=== PATIENT | male | born 1955 | race Caucasian/White ===

== ENCOUNTER 2018-02-05 10:23 | Emergency (ER) | payer MEDICARE ==
[~2018-02-05] VITALS: Ht 180.3 cm; Wt 68.0 kg
[2018-02-05] MEDS ORDERED: SODIUM CHLORIDE 0.9% 1000ML 1,000 ML IV SCH (11:00)
[2018-02-05 11:30] LABS: BASOPHILS % 0.2 % (0.0-1.0); EOSINOPHILS % 0.1 % (0.0-6.0); HEMATOCRIT 42.8 % (38.2-49.6); LYMPHOCYTES # (AUTO) 1.8 (1.0-3.2); LYMPHOCYTES % 10.8 % (18.0-39.1); MEAN CORPUSCULAR HEMOGLOBIN 31.5 pg (28-32); MEAN CORPUSCULAR VOLUME 89.9 fL (81-99); MONOCYTES # (AUTO) 0.2 (0.2-0.8); MONOCYTES % 1.4 % (4.4-11.3); NEUTROPHILS # (AUTO) 14.4 (2.1-6.9); NEUTROPHILS % 86.5 % (38.7-80.0); PLATELET COUNT 289 x10e3/uL (140-360); RED BLOOD COUNT 4.76 x10e6/uL (4.3-5.7); RED CELL DISTRIBUTION WIDTH 13.2 % (11.7-14.4)
[2018-02-05 11:50] LABS: ALANINE AMINOTRANSFERASE 26 IU/L (0-55); ALBUMIN 4.1 g/dL (3.5-5.0); ALKALINE PHOSPHATASE 70 IU/L (40-150); ANION GAP 18.3 mmol/L (8-16); BLOOD UREA NITROGEN 15 mg/dL (7-26); BUN/CREATININE RATIO 18 (6-25); CALCIUM 9.7 mg/dL (8.4-10.2); CARBON DIOXIDE 22 mmol/L (22-29); CHLORIDE 101 mmol/L (98-107); CREATINE KINASE 201 IU/L (30-200); CREATININE, SERUM 0.83 mg/dL (0.72-1.25); EST GLOMERULAR FILTRATION RATE > 60 ML/MIN (60-); GLUCOSE 123 mg/dL (74-118); POTASSIUM 4.3 mmol/L (3.5-5.1); SODIUM 137 mmol/L (136-145)
--- NOTE | 2018-02-05 13:09 | Diagnostic Imaging Report ---
Exam: Cervical spine CT without IV contrast History: Tingling and numbness, unable to keep study on feet. Comparison studies: None Technique: Axial images were obtained through the cervical region. Coronal and sagittal images reconstructed from the axial data. Intravenous contrast: None Findings: Atlantoaxial articulation: Intact Alignment: Straightened cervical curvature. Minimal anterolisthesis of C4 on C5 and retrolisthesis of C5 on C6. Cervicomedullary junction: No abnormalities. Patent foramen magnum. Soft tissues: No gross acute abnormalities. Vertebrae: No fractures, neoplasm or infection. Degenerative changes: C2-C3: Moderate left facet arthrosis. Patent canal and right foramen. C3-C4: Small asymmetric right disc osteophyte complex, mildly thickened ligamentum flavum, uncovertebral arthrosis and severe right and mild left facet arthrosis with severe right and mild left foraminal stenosis and mild canal stenosis. C4-C5: Mildly degenerated disc. Minimal anterolisthesis of C4 on C5 with small disc osteophyte complex which indents the thecal sac but does not result in significant canal stenosis. Uncovertebral arthrosis and moderate right and mild left facet arthrosis with moderate right foraminal stenosis. Patent left foramen. C5-C6: Moderately degenerated disc with loss of disc height. Minimal retrolisthesis of C5 on C6 with associated disc osteophyte complex, uncovertebral arthrosis and moderate right and mild left facet arthrosis with mild canal stenosis and moderate bilateral foraminal stenosis. Small anterior disc osteophyte complex indents the prevertebral soft tissues. C6-C7: Mildly degenerated disc. Small disc osteophyte complex indents the thecal sac without significant canal stenosis. Patent foramina. C7-T1: Patent canal and foramina. Incidental findings: Emphysema with mild scarring at the lung apices bilaterally. 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 Mild calcified atherosclerosis in the carotid bulbs. IMPRESSION: 1. No cervical spine fracture or acute subluxation. 2. Multilevel degenerative changes with moderately degenerated C5-C6 disc, advanced multilevel facet arthrosis and multilevel foraminal stenosis (severe right at C3-C4, moderate on the right at C4-C5 and bilaterally at C5-C6). 3. No critical canal stenosis identified by CT. Cervical spine MRI may better evaluate the spinal canal and spinal cord and could be performed as clinically warranted. Signed by: Dr. Rainer Corbin M.D. on 02/05/2018 1:06 PM
[2018-02-05 13:16] LABS: INR 0.92; PROTHROMBIN TIME 13.2 seconds (11.9-14.5)
[2018-02-05 13:17] LABS: PARTIAL THROMBOPLASTIN TIME 29.9 seconds (23.8-35.5)
[2018-02-05 14:37] VITALS: BP 140/99
== END 2018-02-05 14:42 | disposition home or self-care (01) ==
LOC: ER 10:23
DX: M54.2 Cervicalgia (principal); M54.12 Radiculopathy, cervical region
CPT/HCPCS: 36415; 72125; 80053; 82550; 82553; 84484; 85025; 85610; 85730; 99284; J7030

== ENCOUNTER 2021-09-29 07:41 | Emergency (ER) | payer MEDICARE ==
[~2021-09-29] VITALS: Ht 177.8 cm; Wt 70.3 kg
[2021-09-29] MEDS ORDERED: LYRICA75 MG PO (08:02)
[2021-09-29] MEDS ORDERED: ACETAMINOPHEN-1 EAC4 (08:02)
[2021-09-29] MEDS ORDERED: SODIUM CHLORIDE 0.9% 100 ML ONE (08:45)
[2021-09-29] MEDS ORDERED: SODIUM CHLORIDE 0.9% 1000ML 1,000 ML IV SCH (08:45)
[2021-09-29] MEDS ORDERED: IOPAMIDOL 370 MG/ML 100 ML INFUS..BTL INJ ONE (08:45)
[2021-09-29] MEDS ORDERED: ALBUTEROL/IPRATROPIUM 3 ML NEB NEB ONE (09:00)
[2021-09-29] MEDS ORDERED: ALBUTEROL/IPRATROPIUM 3 ML NEB ONE (09:22)
[2021-09-29] MEDS ORDERED: SODIUM CHLORIDE 0.9% 1000ML 1,000 ML ONE (09:22)
[2021-09-29 09:26] LABS: INR 0.88; PROTHROMBIN TIME 12.8 seconds (11.9-14.5)
[2021-09-29] MEDS ORDERED: ASPIRIN 325 MG TAB PO ONE (10:45)
[2021-09-29] MEDS ORDERED: ASPIRIN 325 MG TAB ONE (10:46)
== END 2021-09-29 12:12 | disposition short-term general hospital (02) ==
LOC: FSED 08:04
DX: I63.9 Cerebral infarction, unspecified (principal); I63.211 Cerebral infarction due to unspecified occlusion or stenosis of right vertebral artery; D69.6 Thrombocytopenia, unspecified; R03.0 Elevated blood-pressure reading, without diagnosis of hypertension; M54.9 Dorsalgia, unspecified; G89.29 Other chronic pain; R94.31 Abnormal electrocardiogram [ECG] [EKG]; Z20.822 Contact with and (suspected) exposure to COVID-19; F17.210 Nicotine dependence, cigarettes, uncomplicated; J44.9 Chronic obstructive pulmonary disease, unspecified
CPT/HCPCS: 36415; 70496; 70498; 71046; 80053; 82553; 84484; 85025; 85610; 85730; 93005; 99284; J7030; J7050; Q9967; U0002

== ENCOUNTER 2021-11-08 11:19 | Emergency (ER) | payer MEDICARE ==
[~2021-11-08] VITALS: Ht 177.8 cm; Wt 70.3 kg
[~2021-11-08 11:19] MED LIST: ACETAMINOPHEN-1 EAC4; LYRICA75 MG PO
[2021-11-08] MEDS ORDERED: SODIUM CHLORIDE FLUSH 10 ML SYR IV PRN (11:45)
[2021-11-08 12:25] LABS: BASOPHILS % 0.7 % (0.0-1.0); EOSINOPHILS # (AUTO) 0.2 (0.0-0.4); EOSINOPHILS % 3.2 % (0.0-6.0); HEMATOCRIT 36.6 % (38.2-49.6); HEMOGLOBIN 12.3 g/dL (14.0-18.0); LYMPHOCYTES # (AUTO) 2.2 (1.0-3.2); LYMPHOCYTES % 41.5 % (18.0-39.1); MEAN CORPUSCULAR HEMOGLOBIN 29.8 pg (28-32); MEAN CORPUSCULAR HGB CONC 33.6 g/dL (31-35); MEAN CORPUSCULAR VOLUME 88.6 fL (81-99); MONOCYTES # (AUTO) 0.6 (0.2-0.8); MONOCYTES % 10.6 % (4.4-11.3); NEUTROPHILS # (AUTO) 2.3 (2.1-6.9); NEUTROPHILS % 43.3 % (38.7-80.0); PLATELET COUNT 126 x10e3/uL (140-360); RED BLOOD COUNT 4.13 x10e6/uL (4.3-5.7); RED CELL DISTRIBUTION WIDTH 13.8 % (11.7-14.4)
[2021-11-08 12:35] LABS: INR 1.07; PROTHROMBIN TIME 14.9 seconds (11.9-14.5)
[2021-11-08 12:36] LABS: PARTIAL THROMBOPLASTIN TIME 29.3 seconds (23.8-35.5)
[2021-11-08 12:45] LABS: ALANINE AMINOTRANSFERASE 14 IU/L (0-55); ALBUMIN 3.7 g/dL (3.5-5.0); ALBUMIN/GLOBULIN RATIO 1.1 (0.8-2.0); ALKALINE PHOSPHATASE 84 IU/L (40-150); ANION GAP 15.2 mmol/L (8-16); BLOOD UREA NITROGEN 7 mg/dL (7-26); BUN/CREATININE RATIO 9 (6-25); CALCIUM 8.8 mg/dL (8.4-10.2); CARBON DIOXIDE 25 mmol/L (22-29); CHLORIDE 108 mmol/L (98-107); CREATININE, SERUM 0.78 mg/dL (0.72-1.25); GLUCOSE 95 mg/dL (74-118); POTASSIUM 3.2 mmol/L (3.5-5.1); SODIUM 145 mmol/L (136-145)
[2021-11-08] MEDS ORDERED: IOPAMIDOL 370 MG/ML 100 ML INFUS..BTL INJ ONE (14:39)
[2021-11-08] MEDS ORDERED: SODIUM CHLORIDE 0.9% 100 ML ONE (14:39)
[2021-11-08 16:42] VITALS: BP 122/71
== END 2021-11-08 16:47 | disposition short-term general hospital (02) ==
LOC: ER 11:25
DX: I63.521 Cerebral infarction due to unspecified occlusion or stenosis of right anterior cerebral artery (principal); J44.9 Chronic obstructive pulmonary disease, unspecified; I10 Essential (primary) hypertension; I69.354 Hemiplegia and hemiparesis following cerebral infarction affecting left non-dominant side; I69.392 Facial weakness following cerebral infarction; M51.36 Other intervertebral disc degeneration, lumbar region; Z88.0 Allergy status to penicillin; Z88.2 Allergy status to sulfonamides
CPT/HCPCS: 0223U; 36415; 70450; 70496; 70498; 71045; 80053; 83880; 84484; 85025; 85610; 85730; 93005; 94760; 99285; J7050; Q9967